=== PATIENT | female | born 1970 | race Caucasian/White ===

== ENCOUNTER 2019-12-13 00:44 | Emergency (ER) | payer OTHER ==
[2019-12-13 00:49] VITALS: TEMP 98.3; BMI 38.6
[2019-12-13] MEDS ORDERED: DEXAMETHASONE SOD PHOSPHATE 10 MG/1 ML VIAL IVPUSH ONE (01:55)
[2019-12-13] MEDS ORDERED: KETOROLAC TROMETHAMINE 30 MG/1 ML VIAL IVPUSH ONE (01:56)
[2019-12-13] MEDS ORDERED: KETOROLAC TROMETHAMINE 60 MG/2 ML VIAL ONE (01:59)
[2019-12-13] MEDS ORDERED: DEXAMETHASONE SOD PHOSPHATE 10 MG/1 ML VIAL ONE (01:59)
--- NOTE | 2019-12-13 02:14 | PDOC ---
Documentation entered by Shena Manzo SCRIBE, acting as scribe for Marc Sue MD. Marc Sue MD: This documentation has been prepared by the Anais mckeon Nirvannie, SCRIBE, under my direction and personally reviewed by me in its entirety. I confirm that the documentation accurately reflects all work, treatment, procedures, and medical decision making performed by me. Attending Attestation - Resident Resident Name: BradDoug - ED Attending Attestation I have performed the following: I have examined & evaluated the patient, The case was reviewed & discussed with the resident, I agree w/resident's findings & plan, Exceptions are as noted - HPI HPI: 12/13/19 01:54 The patient is a 49 year old female with a significant past medical history of chronic lower back pain who presents to the ED with low back pain with parasthesias to the left leg. Pt had recent MRI showing L3-L4 disc herniation and L4-L5 disc bulge without cord compression. Denies any incontinence of bowel or bladder. Denies weakness in either leg. Pt states she is scheduled for spine surgery in 2 days. - Physicial Exam PE: 12/13/19 02:16 See resident exam - Medical Decision Making 12/13/19 02:16 49 F with acute on chronic LBP. Had recent MRI showing disc bulging. No clinical signs of cord compression/cauda equina. - Pain control 12/13/19 04:00 Pt reassessed - pain now well controlled Pt is well appearing, with normal vitals. Clinically stable for DC at this time. I discussed the physical exam findings, ancillary test results and final diagnoses with the patient. I answered all of the patient's questions. The patient was satisfied with the care received and felt comfortable with the discharge plan and treatment plan. The patient agrees to follow up with the primary care physician within 24-72 hours. Please note this patient was evaluated during the COVID-19 crisis with the presidential [place] Act Declaration and the [place] governor executive order number 202. He/she was evaluated and clinical decisions were made relative to healthcare system resources as well as clinical picture during a pandemic crisis situation. Discharge - Discharge Information Problems reviewed: Yes Clinical Impression/Diagnosis: Low back pain, Herniated disc Condition: Stable Disposition: HOME - Follow up/Referral Referrals: [facility] [place] [Provider Group] - Patient Discharge Instructions Patient Printed Discharge Instructions: DI for Low Back Pain Additional Instructions: Please make a follow up appointment with your primary care doctor (referral provided here if needed.) Please continue your plan of care with your spine surgeon Dr. Kebede. Please continue taking your medications as prescribed. If you experience any new, worsening, or concerning symptoms, including fever, change in back pain, weakness, numbness, tingling, loss of sensation in the genital/perineal area, dizziness, or any other concerns, please return to the emergency room. - Post Discharge Activity
--- NOTE | 2019-12-13 02:17 | PDOC ---
History of Present Illness - General Chief Complaint: Back Pain Stated Complaint: PAIN Time Seen by Provider: 12/13/19 01:22 - History of Present Illness Initial Comments: Sharla Mendoza is a 49 y/o female with PMH significant for HTN, HLD, rotator cuff repair, presenting today with lower back and leg pain. Reports that she slipped and fell on to her back a couple months ago in October. She did not present for care at that time because of the covid pandemic. She is scheduled for back surgery with Dr. Kebede on Friday in [facility] but states that she was not able to tolerate the pain and wait until then. States that the pain is 10/10 without any change in quality. Describes the pain as sharp, in the lumbar area and radiating down her posterior thigh to her left knee and mid calf. Pain is intermittent and made worse by movement at times. No fever. No upper back pain or change in back pain. No saddle anesthesia. Able to ambulate and bear weight. Took flexeril and Tylenol and 1 percocet today with minimal relief. MRI two weeks ago shows L2-L3 minimal right lateral disc bulge without nerve root impingement. L3-L4 moderate disc bulge/herniation with a left paracentral extruded disc fragment extending inferiorly deforming the thecal sac, impinging left L4 nerve root and resulting in moderate canal stenosis. It is also impinging right L3 nerve root in the foramen and reaching the left. Moderate right and mild left facet hypertrophy. L4-L5 [id number] mainly central/right paracentral disc bulge without nerve root impingement. Moderate left and mild right facet hypertrophy L5-S1 minimal central disc bulge with a posterior annular tear and without nerve root impingement. Mild bilateral facet hypertrophy, left more the right Past History - Medical History Allergies/Adverse Reactions: Allergies Allergy/AdvReac Type Severity Reaction Status Date / Time oxycodone AdvReac Verified 12/13/19 00:49 COPD: No HTN: Yes Hypercholesterolemia: Yes - Surgical History Abdominal Surgery: Yes - Psycho-Social/Smoking History Smoking History: Current every day smoker Number of Cigarettes Smoked Daily: 20 Information on smoking cessation initiated: Yes - Substance Abuse Hx (Audit-C & DAST Scrn) How often the patient has a drink containing alcohol: Never Score: In Men: 4 or > Positive; In Women: 3 or > Positive: 0 Screen Result (Pos requires Nsg. Audit-10AR): Negative In the last yr the pt used illegal drug/Rx for NonMed reason: No Score: Yes response is considered Positive: 0 Screen Result (Positive result requires Nsg. DAST-10): Negative Review of Systems - Review of Systems Comments:: GENERAL/CONSTITUTIONAL: No fever or chills. No weakness._ HEAD, EYES, EARS, NOSE AND THROAT: No change in vision. No change in hearing. No sore throat._ CARDIOVASCULAR: No chest pain or shortness of breath_ RESPIRATORY: Denies cough, hemoptysis_ GASTROINTESTINAL: No nausea, vomiting, diarrhea or constipation._ GENITOURINARY: No dysuria, frequency, or change in urination._ MUSCULOSKELETAL: Reports lower back pain and left lower extremity pain. SKIN: No rash_ NEUROLOGIC: No headache, vertigo, loss of consciousness, or change in strength/sensation._ ENDOCRINE: No increased thirst. No abnormal weight change_ HEMATOLOGIC/LYMPHATIC: No anemia, easy bleeding, or history of blood clots._ ALLERGIC/IMMUNOLOGIC: No hives or skin allergy._ *Physical Exam - Vital Signs Last Vital Signs Temp Pulse Resp BP Pulse Ox 98.3 F 139 H 20 174/91 H 95 12/13/19 00:45 12/13/19 00:45 12/13/19 00:45 12/13/19 00:45 12/13/19 00:45 - Physical Exam GENERAL: Awake, alert, and oriented to person/place/time, in no acute distress_ HEAD: No signs of trauma, normocephalic, atraumatic _ EYES: PERRLA, EOMI, sclera anicteric, conjunctiva clear_ ENT: Hearing grossly normal, nares patent, oropharynx clear without exudates. No uvular deviation. Moist mucosa_ NECK: Normal ROM, supple, no lymphadenopathy, JVD, or masses_ LUNGS: No distress, speaks in full sentences, clear to auscultation bilaterally _ HEART: Regular rate and rhythm, normal S1 and S2, no murmurs appreciated, peripheral pulses normal and equal bilaterally._ ABDOMEN: Soft, nontender, obese, normoactive bowel sounds. No guarding, no rebound. No masses_ BACK: TTP lumbar spine with no obvious deformity or step off. EXTREMITIES: Normal inspection, Normal range of motion, no edema. No clubbing or cyanosis. Patient is neurovascularly intact distally. Cap refill < 2 sec. Sensation intact and equal throughout bilateral lower extremities. Unable to perform straight leg test 2/2 pain. NEUROLOGICAL: Cranial nerves II through XII grossly intact. Normal speech, normal gait, no focal sensorimotor deficits _ SKIN: Warm, Dry, normal turgor, no rashes or lesions noted_ ED Treatment Course - Medications Given in the ED: ED Medications Discontinued Medications Generic Name Dose Route Start Last Admin Trade Name Hesham PRN Reason Stop Dose Admin Dexamethasone Sodium Phosphate 10 mg 12/13/19 01:55 12/13/19 02:12 Decadron Injection - IVPUSH 12/13/19 01:56 10 mg ONCE ONE Administration Ketorolac Tromethamine 30 mg 12/13/19 01:56 12/13/19 02:12 Toradol Injection - IVPUSH 12/13/19 01:57 30 mg ONCE ONE Administration Medical Decision Making - Medical Decision Making 12/13/19 02:16 49F scheduled for L3-L5 herniated disc repair on Friday presenting today with lower back pain radiating down left leg. No change in pain quality or location. Reports 10/10 pain. -toradol -decadron 12/13/19 02:37 Pt reassessed. Reports continued 10/10 pain. Reports left [place] muscle spasms. Will give Flexeril. 12/13/19 04:03 Pt reassessed. Reports significant improvement. Pt states that she is comfortable going home and f/u on Friday for her surgery. All questions answered. Return precautions given. Pt verbalized understanding and agreement with plan. Discharge - Discharge Information Problems reviewed: Yes Clinical Impression/Diagnosis: Low back pain, Herniated disc Condition: Stable Disposition: HOME - Admission No - Follow up/Referral Referrals: [facility] [place] [Provider Group] - Patient Discharge Instructions Patient Printed Discharge Instructions: DI for Low Back Pain Additional Instructions: Please make a follow up appointment with your primary care doctor (referral provided here if needed.) Please continue your plan of care with your spine surgeon Dr. Kebede. Please continue taking your medications as prescribed. If you experience any new, worsening, or concerning symptoms, including fever, change in back pain, weakness, numbness, tingling, loss of sensation in the genital/perineal area, dizziness, or any other concerns, please return to the emergency room. - Post Discharge Activity
[2019-12-13] MEDS ORDERED: CYCLOBENZAPRINE HCL 10 MG TABLET (FP) PO ONE (02:34)
[2019-12-13] MEDS ORDERED: CYCLOBENZAPRINE HCL 10 MG TABLET (FP) ONE ×2 (03:00→03:08)
[2019-12-13 04:32] VITALS: BP 158/90; PULSE 105
== END 2019-12-13 04:17 | disposition home or self-care (01) ==
LOC: JER 00:44
PROC: 3E033GC Introduction of Other Therapeutic Substance into Peripheral Vein, Percutaneous Approach (ICD-10-PCS; principal; 2019-12-13)
DX: M51.26 Other intervertebral disc displacement, lumbar region (principal)
CPT/HCPCS: 99284-25; J1100

== ENCOUNTER 2024-11-11 14:12 | Inpatient (IN) | payer OTHER ==
[2024-11-11] MEDS ORDERED: ACETAMINOPHEN INJECTION 100 ML ONE (15:41)
[2024-11-11] MEDS: ACETAMINOPHEN 1000 MG/100 ML BAG IVPB ONE (15:55)
[2024-11-11 16:07] LABS: HEMATOCRIT 45.3 % (34.1-44.9); MCHC 33.1 g/dl (32.2-35.5); PLATELET COUNT 271 x10^3/uL (182-369); RDW 13.8 % (12.3-16.6)
[2024-11-11 16:16] LABS: INR 1.02 (0.83-1.09); PROTHROMBIN TIME (PATIENT) 11.2 SEC (9.7-13.0)
[2024-11-11 16:19] LABS: ACTIVATED PTT 29.5 SECONDS (25.2-36.5)
[2024-11-11 16:57] LABS: POTASSIUM 4.9 mmol/L (3.5-5.1)
[2024-11-11 16:59] LABS: CALCIUM 9.6 mg/dL (8.5-10.1)
[2024-11-11 17:00] LABS: ALBUMIN 3.4 g/dl (3.4-5.0); BLOOD UREA NITROGEN 19.4 mg/dL (7-18); MAGNESIUM 2.2 mg/dL (1.8-2.4)
[2024-11-11 17:03] LABS: CREATININE 0.7 mg/dL (0.55-1.3)
[2024-11-11 17:04] LABS: BILIRUBIN,TOTAL 0.6 mg/dL (0.2-1)
[2024-11-11 17:05] LABS: TOT PROT 6.7 g/dl (6.4-8.2)
[2024-11-11 17:30] LABS: HCV DIAGNOSTIC IN-HOUSE W/RFLX NON-REACTIVE (NONREACTIVE); HIV INTERPRETATION NEGATIVE (NEGATIVE)
[2024-11-11] MEDS ORDERED: LIDOCAINE 4% PATCH TP ONE (20:15)
[2024-11-11] MEDS: LIDOCAINE 4% PATCH TP ONE (20:27)
[2024-11-11] MEDS ORDERED: ACETAMINOPHEN 325 MG TABLET (FP) ONE (23:12)
[2024-11-12] MEDS: ACETAMINOPHEN 325 MG TABLET (FP) PO PRN (00:24)
[2024-11-12 01:01] VITALS: BMI 37.1
[2024-11-12 08:02] LABS: ABSOLUTE IMMATURE GRANULOCYTES 0.03 x10^3/uL (0.0-0.031); BASOPHILS # 0.08 x10^3/uL (0.01-0.08); EOSINOPHIL % 3.4 % (0.7-5.8); EOSINOPHILS # 0.31 x10^3/uL (0.04-0.36); HEMOGLOBIN 15.5 g/dL (11.2-15.7); MEAN CELL VOLUME 93.4 fl (79.4-94.8); MEAN PLT VOLUME 10.1 fl (9.4-12.3); MONOCYTE # 0.76 x10^3/uL (0.24-0.86); MONOCYTE % 8.2 % (4.7-12.5); PLATELET COUNT 282 x10^3/uL (182-369); RDW 13.8 % (12.3-16.6)
[2024-11-12 08:25] LABS: POTASSIUM 4.2 mmol/L (3.5-5.1)
[2024-11-12 08:26] LABS: CALCIUM 9.7 mg/dL (8.5-10.1)
[2024-11-12 08:30] LABS: CREATININE 0.6 mg/dL (0.55-1.3)
[2024-11-12] MEDS: LOSARTAN POTASSIUM 50 MG TABLET PO SCH (10:56)
[2024-11-12] MEDS: ENOXAPARIN NA (PORCINE) 40 MG/0.4 ML DISP.SYRIN SQ SCH (11:02)
[2024-11-13 08:30] LABS: ABSOLUTE IMMATURE GRANULOCYTES 0.04 x10^3/uL (0.0-0.031); BASOPHILS # 0.09 x10^3/uL (0.01-0.08); EOSINOPHIL % 2.7 % (0.7-5.8); EOSINOPHILS # 0.25 x10^3/uL (0.04-0.36); HEMATOCRIT 47.6 % (34.1-44.9); HEMOGLOBIN 15.6 g/dL (11.2-15.7); MCHC 32.8 g/dl (32.2-35.5); MEAN CELL VOLUME 93.5 fl (79.4-94.8); MEAN PLT VOLUME 10.1 fl (9.4-12.3); MONOCYTE # 0.65 x10^3/uL (0.24-0.86); MONOCYTE % 6.9 % (4.7-12.5); PLATELET COUNT 280 x10^3/uL (182-369); RDW 13.5 % (12.3-16.6)
[2024-11-13 08:49] LABS: POTASSIUM 4.3 mmol/L (3.5-5.1)
[2024-11-13 08:58] LABS: CALCIUM 9.8 mg/dL (8.5-10.1)
[2024-11-13 08:59] LABS: ALBUMIN 3.3 g/dl (3.4-5.0); BLOOD UREA NITROGEN 11.7 mg/dL (7-18)
[2024-11-13 09:02] LABS: CREATININE 0.7 mg/dL (0.55-1.3)
[2024-11-13 09:04] LABS: BILIRUBIN,TOTAL 0.6 mg/dL (0.2-1); TOT PROT 6.7 g/dl (6.4-8.2)
[2024-11-13] MEDS: PANTOPRAZOLE 40 MG TABLET PO SCH (14:17)
[2024-11-13] MEDS: KETOROLAC TROMETHAMINE 30 MG/1 ML VIAL IVPUSH PRN (14:17)
[2024-11-13] MEDS: LOSARTAN POTASSIUM 50 MG TABLET PO ONE (19:38)
[2024-11-14] MEDS: LOSARTAN POTASSIUM 50 MG TABLET PO SCH (10:59)
[2024-11-14] MEDS: ACETAMINOPHEN 1000 MG/100 ML BAG IVPB PRN (23:15)
[2024-11-15 07:48] LABS: ABSOLUTE IMMATURE GRANULOCYTES 0.07 x10^3/uL (0.0-0.031); BASOPHILS # 0.09 x10^3/uL (0.01-0.08); EOSINOPHIL % 2.7 % (0.7-5.8); EOSINOPHILS # 0.32 x10^3/uL (0.04-0.36); HEMATOCRIT 50.3 % (34.1-44.9); HEMOGLOBIN 16.5 g/dL (11.2-15.7); MCHC 32.8 g/dl (32.2-35.5); MEAN PLT VOLUME 10.1 fl (9.4-12.3); MONOCYTE # 0.83 x10^3/uL (0.24-0.86); MONOCYTE % 6.9 % (4.7-12.5); PLATELET COUNT 281 x10^3/uL (182-369); RDW 13.1 % (12.3-16.6)
[2024-11-15 08:02] LABS: POTASSIUM 4.3 mmol/L (3.5-5.1)
[2024-11-15 08:07] LABS: BLOOD UREA NITROGEN 9.9 mg/dL (7-18)
[2024-11-15 08:08] LABS: ALBUMIN 3.6 g/dl (3.4-5.0)
[2024-11-15 08:10] LABS: CREATININE 0.7 mg/dL (0.55-1.3)
[2024-11-15 08:11] LABS: N-TERMINAL BNP 57.7 pg/ml (5-125)
[2024-11-15 08:12] LABS: BILIRUBIN,TOTAL 0.7 mg/dL (0.2-1)
[2024-11-15] MEDS: amLODIPine BESYLATE 5 MG TABLET (FP) PO SCH (09:03)
[2024-11-15] MEDS: CycloBENZAprine HCL 10 MG TABLET (FP) PO PRN (12:00)
[2024-11-15] MEDS: ATORVASTATIN CA 10 MG TABLET (FP) PO SCH (21:22)
[2024-11-15] MEDS: CEFAZOLIN 1 GM/D5W 1 GM/50 ML BAG IVPB ONE (22:04)
[2024-11-15] MEDS: CEFAZOLIN 1 GM in DEXTROSE 5%-WATER - 50 ML IVPB SCH (23:19)
[2024-11-16] MEDS: CEFAZOLIN 1 GM/D5W 1 GM/50 ML BAG IVPB SCH (05:30)
[2024-11-16 07:18] LABS: HEMOGLOBIN 15.3 g/dL (11.2-15.7); RDW 13.2 % (12.3-16.6)
[2024-11-16 07:19] LABS: HEMATOCRIT 46.5 % (34.1-44.9); MCHC 32.9 g/dl (32.2-35.5); MEAN PLT VOLUME 9.9 fl (9.4-12.3); PLATELET COUNT 259 x10^3/uL (182-369)
[2024-11-16 07:32] LABS: POTASSIUM 4.1 mmol/L (3.5-5.1)
[2024-11-16 07:35] LABS: ALBUMIN 3.3 g/dl (3.4-5.0); BLOOD UREA NITROGEN 10.5 mg/dL (7-18); CALCIUM 9.7 mg/dL (8.5-10.1)
[2024-11-16 07:39] LABS: CREATININE 0.7 mg/dL (0.55-1.3)
[2024-11-16 07:40] LABS: BILIRUBIN,TOTAL 0.7 mg/dL (0.2-1); TOT PROT 6.7 g/dl (6.4-8.2)
[2024-11-16] MEDS: NICOTINE 21 MG/24 HOURS TOPICAL PATCH TD SCH (10:28)
[2024-11-16] MEDS: ATORVASTATIN CA 20 MG TABLET (FP) PO SCH (21:20)
[2024-11-17 07:45] LABS: ABSOLUTE IMMATURE GRANULOCYTES 0.04 x10^3/uL (0.0-0.031); HEMOGLOBIN 14.9 g/dL (11.2-15.7); MEAN PLT VOLUME 10.4 fl (9.4-12.3); RDW 13.2 % (12.3-16.6)
[2024-11-17 07:46] LABS: BASOPHILS # 0.07 x10^3/uL (0.01-0.08); EOSINOPHILS # 0.29 x10^3/uL (0.04-0.36); HEMATOCRIT 44.8 % (34.1-44.9); MCHC 33.3 g/dl (32.2-35.5); MEAN CELL VOLUME 91.8 fl (79.4-94.8); MONOCYTE # 0.76 x10^3/uL (0.24-0.86); MONOCYTE % 7.9 % (4.7-12.5); PLATELET COUNT 256 x10^3/uL (182-369)
[2024-11-17 08:00] LABS: POTASSIUM 4.5 mmol/L (3.5-5.1)
[2024-11-17 08:08] LABS: CALCIUM 9.6 mg/dL (8.5-10.1)
[2024-11-17 08:09] LABS: ALBUMIN 3.2 g/dl (3.4-5.0); BLOOD UREA NITROGEN 16.1 mg/dL (7-18)
[2024-11-17 08:12] LABS: CREATININE 0.8 mg/dL (0.55-1.3)
[2024-11-17 08:13] LABS: BILIRUBIN,TOTAL 0.7 mg/dL (0.2-1)
[2024-11-17 08:14] LABS: TOT PROT 6.5 g/dl (6.4-8.2)
[2024-11-17] MEDS ORDERED: LIDOCAINE 1%/EPI 1:100000 (20 ML MULTI DOSE VIAL) ONE (13:47)
[2024-11-17] MEDS: ceFAZolin SODIUM 1 GM VIAL IVPB ONE ×2 (13:52)
[2024-11-17] MEDS: LIDOCAINE 1%/EPI 1:100000 (20 ML MULTI DOSE VIAL) IJ ONE (13:53)
[2024-11-17] MEDS: VANCOMYCIN 1,000 MG VIAL (RESTRICTED TO ID ONLY) IVPB ONE (14:23)
[2024-11-17] MEDS ORDERED: LIDOCAINE HCL/PF 2% SDV 5ML VIAL ONE (17:34)
[2024-11-17] MEDS ORDERED: HYDROmorphone HCl 2 MG/ML VIAL ONE (17:34)
[2024-11-17] MEDS ORDERED: ONDANSETRON 4 MG/2 ML VIAL ONE (17:34)
[2024-11-17] MEDS ORDERED: ceFAZolin SODIUM 1 GM VIAL ONE (17:34)
[2024-11-17] MEDS ORDERED: DEXAMETHASONE SOD PHOSPHATE 4 MG/1 ML VIAL ONE (17:34)
[2024-11-17] MEDS ORDERED: MIDAZOLAM HCL 2 MG/2 ML SINGLE DOSE VIAL ONE (17:35)
[2024-11-17] MEDS ORDERED: ONDANSETRON 4 MG/2 ML VIAL IVPUSH PRN (17:37)
[2024-11-17] MEDS ORDERED: diphenhydrAMINE HCL 25 MG CAPSULE (FP) PO PRN (17:37)
[2024-11-17] MEDS ORDERED: CycloBENZAprine HCL 10 MG TABLET (FP) PO PRN (17:42)
[2024-11-17] MEDS: LACTATED RINGERS SOLUTION 1,000 ML IV SCH (20:05)
[2024-11-17] MEDS: morphine SULFATE 4 MG/ML VIAL IVPUSH PRN (20:32)
[2024-11-17] MEDS: DOCUSATE SODIUM 100 MG CAPSULE (FP) PO SCH (21:51)
[2024-11-17] MEDS: ATORVASTATIN CA 20 MG TABLET (FP) PO SCH (21:51)
[2024-11-17] MEDS: oxyCODONE HCL 5 MG TABLET PO PRN (21:51)
[2024-11-17] MEDS: CEFAZOLIN 1 GM/D5W 1 GM/50 ML BAG IVPB SCH (21:52)
[2024-11-18] MEDS: ACETAMINOPHEN 1000 MG/100 ML BAG IVPB PRN (01:17)
[2024-11-18 08:18] LABS: HEMATOCRIT 40.3 % (34.1-44.9); HEMOGLOBIN 13.2 g/dL (11.2-15.7); MCHC 32.8 g/dl (32.2-35.5); MEAN CELL VOLUME 91.8 fl (79.4-94.8); MEAN PLT VOLUME 10.7 fl (9.4-12.3); PLATELET COUNT 265 x10^3/uL (182-369); RDW 13.1 % (12.3-16.6)
[2024-11-18 08:57] LABS: POTASSIUM 4.3 mmol/L (3.5-5.1)
[2024-11-18 08:58] LABS: CALCIUM 9.4 mg/dL (8.5-10.1)
[2024-11-18 08:59] LABS: ALBUMIN 2.9 g/dl (3.4-5.0); BLOOD UREA NITROGEN 13.5 mg/dL (7-18)
[2024-11-18 09:02] LABS: CREATININE 0.8 mg/dL (0.55-1.3)
[2024-11-18 09:03] LABS: BILIRUBIN,TOTAL 0.6 mg/dL (0.2-1); TOT PROT 5.9 g/dl (6.4-8.2)
[2024-11-18] MEDS: NICOTINE 21 MG/24 HOURS TOPICAL PATCH TD SCH (10:10)
[2024-11-18] MEDS: amLODIPine BESYLATE 5 MG TABLET (FP) PO SCH (10:10)
[2024-11-18] MEDS: PANTOPRAZOLE 40 MG TABLET PO SCH (10:10)
[2024-11-18] MEDS: FOLIC ACID 1 MG TABLET (FP) PO SCH (10:10)
[2024-11-18] MEDS: LOSARTAN POTASSIUM 50 MG TABLET PO SCH (10:11)
[2024-11-18] MEDS: FERROUS SO4 325 MG TABLET (FP) PO SCH (10:11)
[2024-11-18] MEDS: CycloBENZAprine HCL 10 MG TABLET (FP) PO SCH (13:31)
[2024-11-18] MEDS: HEPARIN NA (PORCINE) 5,000 UNITS/ML 1ML VIAL SQ SCH (21:33)
[2024-11-19 20:54] LABS: ABSOLUTE IMMATURE GRANULOCYTES 0.06 x10^3/uL (0.0-0.031); BASOPHILS # 0.05 x10^3/uL (0.01-0.08); EOSINOPHIL % 0.6 % (0.7-5.8); EOSINOPHILS # 0.09 x10^3/uL (0.04-0.36); HEMATOCRIT 39.2 % (34.1-44.9); HEMOGLOBIN 12.7 g/dL (11.2-15.7); MCHC 32.4 g/dl (32.2-35.5); MEAN PLT VOLUME 10.3 fl (9.4-12.3); MONOCYTE # 1.34 x10^3/uL (0.24-0.86); MONOCYTE % 8.4 % (4.7-12.5); PLATELET COUNT 225 x10^3/uL (182-369); RDW 13.6 % (12.3-16.6)
[2024-11-19] MEDS: CEFAZOLIN 1 GM/D5W 1 GM/50 ML BAG IVPB SCH (23:11)
[2024-11-19] MEDS: SENNOSIDES 8.6MG TABLET (FP) PO PRN (23:11)
[2024-11-20 08:14] LABS: ABSOLUTE IMMATURE GRANULOCYTES 0.08 x10^3/uL (0.0-0.031); BASOPHILS # 0.07 x10^3/uL (0.01-0.08); EOSINOPHIL % 0.9 % (0.7-5.8); EOSINOPHILS # 0.15 x10^3/uL (0.04-0.36); MCHC 33.3 g/dl (32.2-35.5); MEAN CELL VOLUME 93.1 fl (79.4-94.8); MEAN PLT VOLUME 10.6 fl (9.4-12.3); MONOCYTE # 1.48 x10^3/uL (0.24-0.86); MONOCYTE % 9.2 % (4.7-12.5); PLATELET COUNT 249 x10^3/uL (182-369); RDW 13.4 % (12.3-16.6)
[2024-11-20 08:32] LABS: POTASSIUM 4.1 mmol/L (3.5-5.1)
[2024-11-20 08:36] LABS: ALBUMIN 2.9 g/dl (3.4-5.0)
[2024-11-20 08:40] LABS: BLOOD UREA NITROGEN 12.5 mg/dL (7-18); CALCIUM 9.3 mg/dL (8.5-10.1)
[2024-11-20 08:41] LABS: BILIRUBIN,TOTAL 1.1 mg/dL (0.2-1); TOT PROT 6.3 g/dl (6.4-8.2)
[2024-11-20 08:42] LABS: CREATININE 0.6 mg/dL (0.55-1.3)
[2024-11-20] MEDS: MAGNESIUM CITRATE 300 ML BOTTLE PO ONE (13:44)
[2024-11-21 08:31] LABS: HEMATOCRIT 35.8 % (34.1-44.9); HEMOGLOBIN 12.1 g/dL (11.2-15.7); MCHC 33.8 g/dl (32.2-35.5); MEAN CELL VOLUME 92.5 fl (79.4-94.8); MEAN PLT VOLUME 10.6 fl (9.4-12.3); PLATELET COUNT 252 x10^3/uL (182-369); RDW 13.4 % (12.3-16.6)
[2024-11-21 09:04] LABS: ALBUMIN 2.5 g/dl (3.4-5.0); BLOOD UREA NITROGEN 12.4 mg/dL (7-18)
[2024-11-21 09:08] LABS: CREATININE 0.5 mg/dL (0.55-1.3)
[2024-11-21 09:09] LABS: BILIRUBIN,TOTAL 1.1 mg/dL (0.2-1); TOT PROT 5.8 g/dl (6.4-8.2)
[2024-11-21] MEDS: GABAPENTIN 100 MG CAPSULE PO SCH (14:20)
[2024-11-22 05:20] VITALS: BP 96/79; PULSE 90; RESP 18; TEMP 97.5
[2024-11-22 08:36] LABS: HEMATOCRIT 37.9 % (34.1-44.9); HEMOGLOBIN 12.3 g/dL (11.2-15.7); MCHC 32.5 g/dl (32.2-35.5); MEAN CELL VOLUME 93.3 fl (79.4-94.8); MEAN PLT VOLUME 10.3 fl (9.4-12.3); PLATELET COUNT 293 x10^3/uL (182-369); RDW 13.2 % (12.3-16.6)
[2024-11-22 09:03] LABS: POTASSIUM 4.4 mmol/L (3.5-5.1)
[2024-11-22 09:11] LABS: CALCIUM 9.2 mg/dL (8.5-10.1)
[2024-11-22 09:12] LABS: ALBUMIN 2.4 g/dl (3.4-5.0); BLOOD UREA NITROGEN 8.7 mg/dL (7-18)
[2024-11-22 09:15] LABS: CREATININE 0.5 mg/dL (0.55-1.3)
[2024-11-22 09:16] LABS: BILIRUBIN,TOTAL 0.8 mg/dL (0.2-1)
== END 2024-11-22 13:29 | disposition home health service (06) | DRG 448 ==
LOC: JER 14:12 → JERBED 22:37 → J7W 23:59 → J8W 11-17 20:03
PROVIDERS: ADMIT Internal Medicine; ATTEND Internal Medicine
PROC: 0SG107J Fusion of 2 or more Lumbar Vertebral Joints with Autologous Tissue Substitute, Posterior Approach, Anterior Column, Open Approach (ICD-10-PCS; 2024-11-17)
PROC: 0ST20ZZ Resection of Lumbar Vertebral Disc, Open Approach (ICD-10-PCS; 2024-11-17)
PROC: 01NB0ZZ Release Lumbar Nerve, Open Approach (ICD-10-PCS; 2024-11-17)
PROC: 4A11X4G Monitoring of Peripheral Nervous Electrical Activity, Intraoperative, External Approach (ICD-10-PCS; 2024-11-17)
PROC: 0SG10AJ Fusion of 2 or more Lumbar Vertebral Joints with Interbody Fusion Device, Posterior Approach, Anterior Column, Open Approach (ICD-10-PCS; principal; 2024-11-17 14:00)
DX: M51.26 Other intervertebral disc displacement, lumbar region (principal); M48.061 Spinal stenosis, lumbar region without neurogenic claudication; M54.16 Radiculopathy, lumbar region; I10 Essential (primary) hypertension; E78.5 Hyperlipidemia, unspecified; F17.210 Nicotine dependence, cigarettes, uncomplicated; J44.9 Chronic obstructive pulmonary disease, unspecified; E03.9 Hypothyroidism, unspecified; E66.9 Obesity, unspecified; Z68.37 Body mass index [BMI] 37.0-37.9, adult
CPT/HCPCS: 36415; 71275-TC; 72100-TC-FY; 72110-TC-FY; 72125-TC; 72131-TC; 72141-TC; 72148-TC; 73502-TC-RT-FY; 73706-TC-RT; 74174-TC; 76000-TC-FY; 76856-TC; 80048; 80053; 80061; 83036; 83605; 83735; 83880; 84439; 84443; 84484; 85025; 85027; 85610; 85730; 86803; 86850; 86900; 86901; 87389; 93005; 93010; 93306-TC; 93880-TC; 93971; 94760; 97116-GP; 97161-GP; 99285-25; C1889; Q9967